=== PATIENT | female | born 1985 | race Caucasian/White ===

== ENCOUNTER 2023-08-16 12:18 | Outpatient (CLI) | payer SELFPAY | END 2023-08-16 12:19 | disposition critical access hospital (66) | LOC: EMS 12:18 | DX: R45.851 Suicidal ideations (principal) | CPT/HCPCS: A0425; A0429 ==

== ENCOUNTER 2023-08-16 12:39 | Emergency (ER) | payer SELFPAY ==
--- NOTE | 2023-08-16 12:51 | ED Physician Documentation ---
PD HPI MHE - Stated complaint Stated Complaint: MHE - Chief complaint Chief Complaint: MHE - History obtained from History obtained from: Patient, EMS - Additional information Additional information: Patient is a 37-year-old female presenting from [facility] with reported suicidal thoughts stating that she wants to and has plans to hurt herself. Patient is minimally cooperative with questions, most often answering with head shaking yes or no. She states she just does not feel like talking. She does have a history of methamphetamine use. She has been [facility] for at least 2 days.When asked if anything hurts she states everything but states she does not feel like talking about it. On review of prior medical history, patient has been seen at the [facility] emergency department several times in the past for psychosis and SI symptoms - Most recently was July 20. PD PAST MEDICAL HISTORY - Past Surgical History Past Surgical History: No - Present Medications Home Medications: Ambulatory Orders Medication Instructions Recorded Confirmed cloNIDine [Catapres] 0.1 mg PO Q4HR PRN 08/16/23 08/16/23 - Allergies Allergies/Adverse Reactions: Allergies Allergy/AdvReac Type Severity Reaction Status Date / Time clindamycin Allergy Unknown Verified 08/16/23 12:51 morphine Allergy Unknown Verified 08/16/23 12:51 - Social History Does the pt smoke?: Yes Smoking Status: Current every day smoker Does the pt drink ETOH?: No - POLST Patient has POLST: No Results - Vitals Vitals: Vital Signs - 24 hr 08/16/23 12:40 Temperature 36.7 C Heart Rate 103 H Respiratory 16 Rate Blood Pressure 118/83 H O2 Saturation 98 Oxygen O2 Source Room air - Labs Labs: Laboratory Tests 08/16/23 08/16/23 08/16/23 12:58 12:58 12:58 WBC 7.9 RBC 4.14 L Hgb 11.1 L Hct 36.2 L MCV 87.4 MCH 26.8 L MCHC 30.7 L RDW 14.4 Plt Count 345 MPV 8.9 Neut # (Auto) 4.4 Lymph # (Auto) 2.9 [place] # (Auto) 0.5 Eos # (Auto) 0.1 Baso # (Auto) 0.0 Absolute Nucleated RBC 0.00 Nucleated RBC % 0.0 Sodium 138 Potassium 4.2 Chloride 109 Carbon Dioxide 24 Anion Gap 5.0 L BUN 18 Creatinine 0.6 Estimated GFR (MDRD) 113 Glucose 118 H Calcium 9.2 Magnesium 1.7 Total Bilirubin 0.2 AST 12 ALT 15 Alkaline Phosphatase 47 Total Creatine Kinase 60 Total Protein 6.2 L Albumin 3.6 Globulin 2.6 Albumin/Globulin Ratio 1.4 Lipase 30 TSH 1.66 Serum HCG, Qual NEGATIVE Urine Color Urine Clarity Urine pH Ur Specific [place] Urine Protein Urine Glucose (UA) Urine Ketones Urine Occult Blood Urine Nitrite Urine Bilirubin Urine Urobilinogen Ur Leukocyte Esterase Ur Microscopic Review Urine Culture Comments Salicylates < 1.5 Urine Opiates Screen Ur Buprenorphine Scrn Ur Oxycodone Screen Urine Methadone Screen Acetaminophen 1.8 Ur Barbiturates Screen Ur Tricyclics Screen Ur Phencyclidine Scrn Ur Amphetamine Screen U Methamphetamines Scrn U Benzodiazepines Scrn Urine Cocaine Screen U Cannabinoids Screen Ur Drug Screen Comment Ethyl Alcohol < 10.0 SARS-CoV-2 (PCR) 08/16/23 08/16/23 14:00 15:30 WBC RBC Hgb Hct MCV MCH MCHC RDW Plt Count MPV Neut # (Auto) Lymph # (Auto) [place] # (Auto) Eos # (Auto) Baso # (Auto) Absolute Nucleated RBC Nucleated RBC % Sodium Potassium Chloride Carbon Dioxide Anion Gap BUN Creatinine Estimated GFR (MDRD) Glucose Calcium Magnesium Total Bilirubin AST ALT Alkaline Phosphatase Total Creatine Kinase Total Protein Albumin Globulin Albumin/Globulin Ratio Lipase TSH Serum HCG, Qual Urine Color YELLOW Urine Clarity CLEAR Urine pH 6.0 Ur Specific [place] 1.010 Urine Protein NEGATIVE Urine Glucose (UA) NEGATIVE Urine Ketones NEGATIVE Urine Occult Blood TRACE-INTA Urine Nitrite NEGATIVE Urine Bilirubin NEGATIVE Urine Urobilinogen 0.2 (NORMAL) Ur Leukocyte Esterase NEGATIVE Ur Microscopic Review NOT INDICATED Urine Culture Comments NOT INDICATED Salicylates Urine Opiates Screen NEGATIVE Ur Buprenorphine Scrn NEGATIVE Ur Oxycodone Screen NEGATIVE Urine Methadone Screen NEGATIVE Acetaminophen Ur Barbiturates Screen NEGATIVE Ur Tricyclics Screen POSITIVE H Ur Phencyclidine Scrn NEGATIVE Ur Amphetamine Screen POSITIVE H U Methamphetamines Scrn POSITIVE H U Benzodiazepines Scrn NEGATIVE Urine Cocaine Screen NEGATIVE U Cannabinoids Screen NEGATIVE Ur Drug Screen Comment CUTOFF CONC BELOW: Ethyl Alcohol SARS-CoV-2 (PCR) NOT DETECTED PD Medical Decision Making - ED course Complexity details: reviewed results, re-evaluated patient ED course: Patient presenting from [facility] with reported head banging as well as making suicidal statements. Not wanting to answer much of my questions but mental health screening labs were obtained without any significant findings. No outward signs of trauma noted on the patient. She otherwise appears alert and without any visible neurodeficits. She is ambulatory. Social work has seen the patient and she did converse with the social media assistant. Social work feels patient needs DCR evaluation and does not seem appropriate to consent to voluntary treatment thus DCR has been requested to see the patient. 1335 - Labs reviewed - Hemoglobin 11.1. Prior labs from the [facility] show hemoglobin of 12.0 on July 20. Patient is medically cleared. Social work consult placed. Urine analysis is pending. 1607 - Urine negative for infection. COVID is negative. Urine drug screen reviewed. Patient has been seen by social work and does not appear Appropriate to be able to consent to voluntary treatment so social work plans to dispatch DCR. 1800 - Patient signed out to Dr. Hermosillo at shift change pending evaluation by DCR. Departure - Departure Clinical Impression: Psychiatric symptoms Condition: Stable Forms: PCP List
[2023-08-16 13:04] LABS: BASOPHILS % (AUTO) 0.4 %; EOSINOPHILS # (AUTO) 0.1 10^3/uL (0.0-0.7); EOSINOPHILS % (AUTO) 1.5 %; HCT - HEMATOCRIT 36.2 % (37.0-47.0); HGB - HEMOGLOBIN 11.1 g/dL (12.0-16.0); LYMPHOCYTES # (AUTO) 2.9 10^3/uL (1.5-3.5); LYMPHOCYTES % (AUTO) 36.5 %; MEAN CORPUSCULAR HEMOGLOBIN 26.8 pg (27.0-31.0); MEAN CORPUSCULAR HGB CONC 30.7 g/dL (32.0-36.0); MEAN CORPUSCULAR VOLUME 87.4 fL (81.0-99.0); MEAN PLATELET VOLUME 8.9 fL (7.9-10.8); MONOCYTES # (AUTO) 0.5 10^3/uL (0.0-1.0); MONOCYTES % (AUTO) 6.1 %; NEUTROPHILS # (AUTO) 4.4 10^3/uL (1.5-6.6); NEUTROPHILS % (AUTO) 55.2 %; PLT - PLATELET COUNT 345 10^3/uL (130-450); RED BLOOD COUNT 4.14 10^6/uL (4.20-5.40); RED CELL DISTRIBUTION WIDTH 14.4 % (12.0-15.0); WHITE BLOOD COUNT 7.9 x10^3/uL (4.8-10.8)
[2023-08-16 13:25] LABS: ACETAMINOPHEN 1.8 ug/mL; ALBUMIN 3.6 g/dL (3.2-5.5); ALBUMIN/GLOBULIN RATIO 1.4 (1.0-2.2); ALKALINE PHOSPHATASE 47 IU/L (42-121); ALT ALANINE AMINOTRANSFERASE 15 IU/L (10-60); AST ASPARTATE AMINOTRANSFERASE 12 IU/L (10-42); BILIRUBIN,TOTAL 0.2 mg/dL (0.2-1.0); BUN - BLOOD UREA NITROGEN 18 mg/dL (6-20); CALCIUM 9.2 mg/dL (8.5-10.3); CARBON DIOXIDE - CO2 24 mmol/L (21-32); CHLORIDE 109 mmol/L (101-111); CK- CREATINE KINASE 60 IU/L (30-223); CREATININE 0.6 mg/dL (0.6-1.3); ETOH - ETHANOL < 10.0 mg/dL; GFR - MDRD 113 (>89); GLUCOSE 118 mg/dL (74-104); LIPASE 30 U/L (11-82); MAGNESIUM 1.7 mg/dL (1.7-2.3); POTASSIUM 4.2 mmol/L (3.5-4.5); SODIUM 138 mmol/L (135-145); TOTAL PROTEIN 6.2 g/dL (6.4-8.9)
[2023-08-16 13:28] LABS: SALICYLATE < 1.5 mg/dL
[2023-08-16 13:39] LABS: THYROID STIMULATING HORMONE 1.66 uIU/mL (0.34-5.60)
[2023-08-16 13:55] LABS: HCG,QUALITATIVE BLOOD NEGATIVE
[2023-08-16 15:43] LABS: BILIRUBIN,URINE NEGATIVE (NEGATIVE); GLUCOSE, URINE (UA) NEGATIVE (NEGATIVE); KETONES,URINE (UA) NEGATIVE (NEGATIVE); LEUKOCYTE ESTERASE, URINE NEGATIVE (NEGATIVE); NITRITE,URINE NEGATIVE (NEGATIVE); OCCULT BLOOD,URINE TRACE-INTA (NEGATIVE); PROTEIN,URINE NEGATIVE (NEGATIVE); UROBILINOGEN,URINE 0.2 (NORMAL) E.U./dL (NORMAL)
[2023-08-16 15:50] LABS: CLARITY,URINE CLEAR (CLEAR)
[2023-08-16 16:01] LABS: AMPHETAMINE SCREEN,URINE POSITIVE (NEGATIVE); BARBITURATE SCREEN,UR NEGATIVE (NEGATIVE); BENZODIAZEPINES SCREEN, URINE NEGATIVE (NEGATIVE); BUPRENORPHINE SCREEN, URINE NEGATIVE (NEGATIVE); COCAINE SCREEN URINE NEGATIVE (NEGATIVE); METHADONE SCREEN, URINE NEGATIVE (NEGATIVE); METHAMPHETAMINES SCREEN, URINE POSITIVE (NEGATIVE); OPIATE SCREEN, URINE NEGATIVE (NEGATIVE); OXYCODONE SCREEN, URINE NEGATIVE (NEGATIVE); THC CANNABINOID SCREEN, URINE NEGATIVE (NEGATIVE); TRICYCLIC ANTIDEPRESSANT,URINE POSITIVE (NEGATIVE)
--- NOTE | 2023-08-16 20:24 | ED Physician Documentation ---
ED Addendum - Addendum Addendum: 08/16/23 20:24 Signed out to me at 6 PM shift change pending DCR evaluation. At this point Cere the DCR has evaluated her and is planning to detain her, there is a paucity of beds available in the region and at this time has updated me that she may have to do a walk away. That said she is still working on placement. 08/16/23 21:57 Care to overnight ED physician at 10 PM shift change
--- NOTE | 2023-08-16 22:50 | ED Physician Documentation ---
ED Addendum - Addendum Addendum: 08/16/23 22:49 I received signout/turnover of care on this patient from Dr. Truong who, in turn, received signout from Dr. Nelson. Please see Dr. Nelson's note for complete H&P and Dr. Truong's note for ED addendum. In short, patient has been evaluated during this ED stay by DCR for drug use rendering her gravely disabled. Early in my shift, [facility] and she is [facility]
[2023-08-17 01:02] VITALS: BP 113/60; O2SAT 100
== END 2023-08-17 01:06 ==
LOC: ED 12:39
DX: R45.851 Suicidal ideations (principal); F17.200 Nicotine dependence, unspecified, uncomplicated; Z79.899 Other long term (current) drug therapy
CPT/HCPCS: 36415; 80053; 80143; 80179; 80306; 81001; 81003; 82077; 82550; 83690; 83735; 84443; 84703; 85025; 87086; 87635; 99284; 99285